=== PATIENT | female | born 1945 | race Hispanic/Latino ===

== ENCOUNTER 2017-03-19 07:51 | Day surgery (SDC) | payer BC ==
[2017-03-17 10:34] VITALS: BMI 39.3
[2017-03-19] MEDS ORDERED: ePHEDrine 50 mg/ml Inj ONE (10:40)
[2017-03-19] MEDS ORDERED: Propofol 10 mg/ml Inj (20 ML) ONE (10:40)
[2017-03-19] MEDS ORDERED: Midazolam 2 MG/2 ML VIAL ONE (10:41)
[2017-03-19] MEDS ORDERED: Rocuronium 10 mg/ml (5 ml) ONE (10:41)
[2017-03-19] MEDS ORDERED: Succinylcholine 200 mg/10 ml Inj IV ONE (10:41)
[2017-03-19] MEDS ORDERED: Lactated Ringer's 1,000 ML IV ONE (11:10)
[2017-03-19] MEDS ORDERED: HYDROmorphone 0.5 mg/0.5 ml ISec IVP PRN (12:39)
[2017-03-19 13:35] VITALS: RESP 18; O2SAT 97
[2017-03-19 14:20] VITALS: BP 105/51; PULSE 63; TEMP 98.4
--- NOTE | 2017-03-22 07:47 | OP ---
PROCEDURE DATE: 03/19/2017 PREOPERATIVE DIAGNOSIS: Postmenopausal bleeding. POSTOPERATIVE DIAGNOSIS: Postmenopausal bleeding, pending pathology. PROCEDURE: Hysteroscopy, MyoSure, and also dilation and curettage. SURGEON: Thomas Ding MD TYPE OF ANESTHESIA: General. ANESTHESIA ADMINISTERED BY: Kami uFnes MD. FINDINGS: Moderate amount of tissue with the MyoSure and dilation and curettage. ESTIMATED BLOOD LOSS: Minimal. DESCRIPTION OF PROCEDURE: With the patient in dorsal lithotomy position under general anesthesia, patient was prepped and draped in the usual sterile manner. Straight catheter was used to empty the bladder after which the weighted speculum placed in the posterior vagina. Cervix was grasped anteriorly and dilated. A hysteroscope was introduced into the uterine cavity, visualizing somewhat polyp or fibroid-looking structures. The MyoSure was introduced and most of the abnormal looking structures were removed by MyoSure. Finally, the D&C was also done and some tissue was also found. The patient tolerated the procedure well and was in satisfactory condition on her way to recovery room. Thomas Ding MD
== END 2017-03-19 14:20 | disposition home or self-care (01) ==
LOC: H.OPSURG 07:51
PROVIDERS: ATTEND Specialist
DX: N95.0 Postmenopausal bleeding (principal); E66.9 Obesity, unspecified; F41.9 Anxiety disorder, unspecified; M54.9 Dorsalgia, unspecified; N84.0 Polyp of corpus uteri; D25.9 Leiomyoma of uterus, unspecified; N32.81 Overactive bladder
CPT/HCPCS: 58558; 88307; J0330; J2001; J2250; J2704; J2765; J3010; J7030; J7120